=== PATIENT | female | born 1950 | race African-American/Black ===

== ENCOUNTER 2017-11-07 14:52 | Inpatient (IN) | payer MEDICARE ==
[~2017-11-07] VITALS: Ht 154.9 cm; Wt 69.9 kg
[2017-11-07] MEDS ORDERED: FUROSEMIDE 40 MG/4 ML VIAL IV ONE (15:30)
[2017-11-07 15:47] LABS: Basophils # (auto) 0 uL; Eosinophils # (auto) 0.1 uL; Mean Corpuscular Volume 102.2 fL (80.0-100.0); Monocytes # (auto) 0.6 uL; Neutrophils # (auto) 2.8 uL; Nucleated Red Blood Cells % 0.5 %
[2017-11-07 15:49] LABS: Basophils % (auto) 0.8 % (0.0-2.0); Eosinophils % (auto) 1.5 % (0.0-7.0); Hematocrit 44.1 % (36.0-46.0); Hemoglobin 14.8 g/dL (12.2-16.2); Lymphocytes # (auto) 1.3 uL; Lymphocytes % (auto) 27.2 % (10.0-50.0); Mean Corpuscular Hemoglobin 34.3 pg (28.0-32.0); Mean Corpuscular Hgb Conc. 33.6 g/dL (32.0-36.0); Monocytes % (auto) 11.4 % (0.0-12.0); Neutrophils % (auto) 59.1 % (37.0-80.0); Platelet Count (auto) 209 10^3/uL (140-450); Red Blood Cells 4.32 10^6/uL (4.0-5.20); Red Cell Distribution Width 14.7 % (11.8-14.3); White Blood Cell 4.8 10^3/uL (4.4-10.8)
[2017-11-07 16:21] LABS: Albumin 3.2 g/dL (3.4-5.0); BUN/Creatinine Ratio 16.9; Bilirubin, Total 3.4 mg/dL (0.2-1.0); Calcium 8.9 mg/dL (8.5-10.1); Potassium 3.9 mmol/L (3.5-5.1); Total Protein 7.9 g/dL (6.4-8.2)
[2017-11-07 17:19] LABS: Urine Bacteria FEW /hpf (None Seen); Urine Blood Negative /uL (Negative); Urine Specific Gravity 1.005 (1.001-1.035); Urine WBC <1 /hpf (0 - 5)
[2017-11-07] MEDS: FUROSEMIDE 40 MG/4 ML VIAL IV SCH (18:00)
[2017-11-07] MEDS ORDERED: HYDROcodone-ACET 5/325MG TAB PO PRN (18:15)
[2017-11-07] MEDS ORDERED: PROMETHAZINE HCL 25 MG/ML 1ML IV PRN (18:15)
[2017-11-07] MEDS ORDERED: TEMAZEPAM 15 MG CAP PO PRN (18:15)
[2017-11-07] MEDS ORDERED: LORazepam 0.5 MG TAB PO PRN (18:15)
[2017-11-07] MEDS ORDERED: ACETAMINOPHEN 500 MG TAB PO PRN (18:15)
[2017-11-07] MEDS ORDERED: LACTULOSE 20Gm/30ML SOLN PO PRN (18:15)
[2017-11-07] MEDS ORDERED: NITROGLYCERIN 0.4 MG SL TAB SL PRN (18:15)
[2017-11-07 19:13] LABS: Alcohol, Urine < 3.0 mg/dL (0-5); Amphetamine Screen, Urine NEGATIVE (NEGATIVE); Barbiturate Scree,Urine NEGATIVE (NEGATIVE); Benzodiazephine Screen, Urine NEGATIVE (NEGATIVE); Cannabinoid Screen, Urine NEGATIVE (NEGATIVE); Cocaine Screen, Urine NEGATIVE (NEGATIVE); Opiate Scree,Urine NEGATIVE (NEGATIVE); Phencyclidine Screen, Urine NEGATIVE (NEGATIVE)
[2017-11-07] MEDS: SODIUM CHLOR 0.9% PF (SALINE LOCK) 10ML VIAL/SYR IV SCH (22:05)
[2017-11-07] MEDS: CARVEDILOL 3.125 MG TAB PO SCH (22:12)
[2017-11-07 22:43] VITALS: BP 123/86
[2017-11-07 23:06] VITALS: BP 123/86
[2017-11-08 05:00] VITALS: BP 96/57
[2017-11-08] MEDS: SODIUM CHLOR 0.9% PF (SALINE LOCK) 10ML VIAL/SYR IV SCH ×3 (05:40→22:11)
[2017-11-08] MEDS: FUROSEMIDE 40 MG/4 ML VIAL IV SCH ×2 (05:40→17:40)
[2017-11-08 07:53] LABS: Basophils # (auto) 0 uL; Hemoglobin 13.9 g/dL (12.2-16.2); Lymphocytes # (auto) 1.1 uL; Monocytes # (auto) 0.5 uL; Neutrophils # (auto) 2.3 uL; Red Blood Cells 4.08 10^6/uL (4.0-5.20)
[2017-11-08 07:56] LABS: Basophils % (auto) 0.2 % (0.0-2.0); Eosinophils # (auto) 0.1 uL; Eosinophils % (auto) 3.6 % (0.0-7.0); Lymphocytes % (auto) 27.9 % (10.0-50.0); Mean Corpuscular Hemoglobin 34.1 pg (28.0-32.0); Mean Corpuscular Hgb Conc. 33.1 g/dL (32.0-36.0); Monocytes % (auto) 11.4 % (0.0-12.0); Neutrophils % (auto) 56.9 % (37.0-80.0); Nucleated Red Blood Cells % 0.3 %; Platelet Count (auto) 186 10^3/uL (140-450); White Blood Cell 4.1 10^3/uL (4.4-10.8)
[2017-11-08 08:22] LABS: Albumin 2.9 g/dL (3.4-5.0); BUN/Creatinine Ratio 16.7; Bilirubin, Total 3.3 mg/dL (0.2-1.0); Calcium 9.1 mg/dL (8.5-10.1); Potassium 4.3 mmol/L (3.5-5.1); Total Protein 7.2 g/dL (6.4-8.2)
[2017-11-08 08:30] VITALS: BP 102/65
[2017-11-08 08:40] VITALS: BP 102/65
[2017-11-08] MEDS: POTASSIUM CHL 20 Meq TABLET PO SCH (09:58)
[2017-11-08] MEDS: PANTOPRAZOLE 40 MG TAB PO SCH (09:59)
[2017-11-08] MEDS: CARVEDILOL 3.125 MG TAB PO SCH ×2 (10:00→22:00)
[2017-11-08] MEDS ORDERED: ENOXAPARIN SOD 30 MG/0.3 ML SYRINGE SC SCH (10:00)
[2017-11-08] MEDS: NITROGLYCERIN 0.2MG/HR TOPICAL PATCH TD SCH (10:00)
[2017-11-08] MEDS: ENALAPRIL MALEATE 2.5 MG TAB PO SCH (10:00)
[2017-11-08] MEDS ORDERED: HYDR25TA4 PO (12:12)
[2017-11-08] MEDS ORDERED: CALC-317 OR (12:18)
[2017-11-08] MEDS ORDERED: POTA10TA51 PO (12:18)
[2017-11-08] MEDS ORDERED: ROSU20TA14 PO (12:18)
[2017-11-08] MEDS ORDERED: FOLI1TAB6 PO (12:18)
[2017-11-08] MEDS ORDERED: METO-158 PO (12:18)
[2017-11-08] MEDS ORDERED: BICT1TAB PO (12:18)
[2017-11-08] MEDS ORDERED: CYAN50008 SL (12:18)
[2017-11-08 12:56] VITALS: BP 95/53
[2017-11-08 17:22] VITALS: BP 106/68
[2017-11-08] MEDS: ENOXAPARIN SOD 80 MG/0.8ML SYRINGE SC SCH (17:27)
[2017-11-08] MEDS: ATORVASTATIN 20 MG TAB PO SCH (22:00)
[2017-11-09] VITALS (7 sets, daily range): BP systolic 95–111; BP diastolic 49–75
[2017-11-09] MEDS: SODIUM CHLOR 0.9% PF (SALINE LOCK) 10ML VIAL/SYR IV SCH ×3 (06:12→22:05)
[2017-11-09] MEDS: FUROSEMIDE 40 MG/4 ML VIAL IV SCH ×2 (06:12→18:00)
[2017-11-09] MEDS: BIKTARVY PO SCH (11:03)
[2017-11-09] MEDS: PANTOPRAZOLE 40 MG TAB PO SCH (11:03)
[2017-11-09] MEDS: ENOXAPARIN SOD 80 MG/0.8ML SYRINGE SC SCH (11:03)
[2017-11-09] MEDS: POTASSIUM CHL 20 Meq TABLET PO SCH (11:03)
[2017-11-09] MEDS: ENALAPRIL MALEATE 2.5 MG TAB PO SCH (11:05)
[2017-11-09] MEDS: NITROGLYCERIN 0.2MG/HR TOPICAL PATCH TD SCH (11:05)
[2017-11-09] MEDS: CARVEDILOL 3.125 MG TAB PO SCH ×2 (11:07→22:00)
[2017-11-09] MEDS: ATORVASTATIN 20 MG TAB PO SCH (22:03)
[2017-11-10 05:10] VITALS: BP 99/66
[2017-11-10] MEDS: FUROSEMIDE 40 MG/4 ML VIAL IV SCH ×3 (06:00→17:16)
[2017-11-10] MEDS: SODIUM CHLOR 0.9% PF (SALINE LOCK) 10ML VIAL/SYR IV SCH ×3 (06:12→21:59)
[2017-11-10 08:30] VITALS: BP 103/63
[2017-11-10] MEDS: PANTOPRAZOLE 40 MG TAB PO SCH (10:39)
[2017-11-10] MEDS: OXYMETAZOLINE HCL 0.05 % NASAL SPRAY 15ML SCH ×2 (10:39→21:55)
[2017-11-10] MEDS: BIKTARVY PO SCH (10:39)
[2017-11-10] MEDS: POTASSIUM CHL 20 Meq TABLET PO SCH (10:40)
[2017-11-10] MEDS: ENALAPRIL MALEATE 2.5 MG TAB PO SCH (10:40)
[2017-11-10] MEDS: ENOXAPARIN SOD 80 MG/0.8ML SYRINGE SC SCH (10:40)
[2017-11-10] MEDS: CARVEDILOL 3.125 MG TAB PO SCH ×2 (10:41→21:55)
[2017-11-10] MEDS: NITROGLYCERIN 0.2MG/HR TOPICAL PATCH TD SCH (10:41)
[2017-11-10 12:59] VITALS: BP 112/53
[2017-11-10 16:56] VITALS: BP 94/61
[2017-11-10 20:39] VITALS: BP 107/50
[2017-11-10] MEDS: ATORVASTATIN 20 MG TAB PO SCH (21:54)
[2017-11-11 05:47] VITALS: BP 92/52
[2017-11-11] MEDS: FUROSEMIDE 40 MG/4 ML VIAL IV SCH (06:00)
[2017-11-11] MEDS: SODIUM CHLOR 0.9% PF (SALINE LOCK) 10ML VIAL/SYR IV SCH ×2 (06:10→14:00)
[2017-11-11 07:39] LABS: Basophils # (auto) 0 uL; Eosinophils # (auto) 0.2 uL; Hemoglobin 14.6 g/dL (12.2-16.2); Monocytes # (auto) 0.5 uL; Red Cell Distribution Width 15.1 % (11.8-14.3); White Blood Cell 3.6 10^3/uL (4.4-10.8)
[2017-11-11 07:42] LABS: Basophils % (auto) 0.7 % (0.0-2.0); Hematocrit 42.9 % (36.0-46.0); Lymphocytes % (auto) 27.3 % (10.0-50.0); Mean Corpuscular Hemoglobin 34.6 pg (28.0-32.0); Mean Corpuscular Volume 101.8 fL (80.0-100.0); Monocytes % (auto) 14.4 % (0.0-12.0); Neutrophils # (auto) 1.9 uL; Neutrophils % (auto) 51.6 % (37.0-80.0); Nucleated Red Blood Cells % 0.2 %; Platelet Count (auto) 257 10^3/uL (140-450); Red Blood Cells 4.21 10^6/uL (4.0-5.20)
[2017-11-11 08:10] LABS: BUN/Creatinine Ratio 15.3; Calcium 8.4 mg/dL (8.5-10.1); Potassium 3.4 mmol/L (3.5-5.1); Total Protein 7.4 g/dL (6.4-8.2)
[2017-11-11 08:30] VITALS: BP 84/48
[2017-11-11 09:07] VITALS: BP 91/54
[2017-11-11] MEDS: ENOXAPARIN SOD 80 MG/0.8ML SYRINGE SC SCH (09:47)
[2017-11-11] MEDS: PANTOPRAZOLE 40 MG TAB PO SCH (09:47)
[2017-11-11] MEDS: POTASSIUM CHL 20 Meq TABLET PO SCH (09:47)
[2017-11-11] MEDS: BIKTARVY PO SCH (09:50)
[2017-11-11] MEDS: CARVEDILOL 3.125 MG TAB PO SCH (09:54)
[2017-11-11] MEDS: OXYMETAZOLINE HCL 0.05 % NASAL SPRAY 15ML SCH (09:54)
[2017-11-11] MEDS: ENALAPRIL MALEATE 2.5 MG TAB PO SCH (09:55)
[2017-11-11] MEDS: NITROGLYCERIN 0.2MG/HR TOPICAL PATCH TD SCH (09:57)
[2017-11-11 12:30] VITALS: BP 108/63
[2017-11-11 14:02] VITALS: BP 108/63
[2017-11-11 14:40] VITALS: BP 108/63
== END 2017-11-11 16:25 | disposition home or self-care (01) | DRG 291 ==
LOC: ER 14:52 → TELE 14:53 → TELE-EAST 22:43
PROVIDERS: ADMIT Internal Medicine; ATTEND Family Medicine
DX: I11.0 Hypertensive heart disease with heart failure (principal); I26.99 Other pulmonary embolism without acute cor pulmonale; Z88.6 Allergy status to analgesic agent; Z88.5 Allergy status to narcotic agent; E78.00 Pure hypercholesterolemia, unspecified; E78.5 Hyperlipidemia, unspecified; I07.1 Rheumatic tricuspid insufficiency; I25.10 Atherosclerotic heart disease of native coronary artery without angina pectoris; I27.20 Pulmonary hypertension, unspecified; M41.9 Scoliosis, unspecified; Z79.01 Long term (current) use of anticoagulants; Z90.710 Acquired absence of both cervix and uterus; Z96.652 Presence of left artificial knee joint; I50.31 Acute diastolic (congestive) heart failure
CPT/HCPCS: 36415; 71045; 71250; 78582; 80053; 80061; 80307; 81001; 82550; 83735; 83880; 84443; 84484; 85025; 85652; 86141; 93005; 93306; 94761; 96374